=== PATIENT | female | born 1985 | race Caucasian/White ===

== ENCOUNTER 2023-09-13 00:13 | Inpatient (IN) | payer BC ==
[2023-09-13] MEDS ORDERED: hydrALAZINE 20 MG/ML VIAL ONE (00:52)
[2023-09-13] MEDS ORDERED: hydrALAZINE 20 MG/ML VIAL SLOW IVP PRN ×3 (00:56)
[2023-09-13] MEDS ORDERED: Lorazepam 2 MG/ML VIAL SLOW IVP PRN (00:56)
[2023-09-13] MEDS ORDERED: Labetalol HCl 100 MG/20 ML VIAL SLOW IVP PRN ×2 (00:56)
[2023-09-13] MEDS ORDERED: Acetaminophen 500 MG TAB PO PRN (00:56)
[2023-09-13] MEDS ORDERED: Carboprost 250 MCG/ML AMP IM PRN (00:56)
[2023-09-13] MEDS ORDERED: Calcium Gluc 4.6 MEQ/10 ML (100 MG/ML) SLOW IVP PRN (00:56)
[2023-09-13] MEDS ORDERED: Ondansetron PF 4 MG/2 ML Vial IVP PRN ×3 (00:56→10:39)
[2023-09-13] MEDS ORDERED: Tranexamic Acid 1,000 MG/10 ML VIAL IVP PRN (00:56)
[2023-09-13] MEDS ORDERED: Promethazine HCl 25 MG/ML VIAL IM PRN ×2 (00:56→10:39)
[2023-09-13] MEDS ORDERED: Misoprostol 200 MCG TAB PR PRN (00:56)
[2023-09-13] MEDS ORDERED: Diphenoxylate HCl/Atropine Tablet PO PRN ×2 (00:56)
[2023-09-13] MEDS ORDERED: Butorphanol Tartrate 1 MG/ML VIAL SLOW IVP PRN (00:56)
[2023-09-13] MEDS ORDERED: Oxytocin 30 units/NS 500 ML 500 ML IV SCH (01:00)
[2023-09-13 01:09] VITALS: BMI 44.4
[2023-09-13] MEDS ORDERED: Magnesium Sulfate 20 gm/500 ml 20 GM/500 ML BAG ONE (01:12)
[2023-09-13 01:27] LABS: Hematocrit 33.6 % (34.9-44.5); Hemoglobin 11.2 g/dL (12.0-15.5); Mean Corpuscular HGB CONC 33.3 g/dL (32.0-36.0); Mean Corpuscular Hemoglobin 27.3 pg (27.0-33.0); Mean Platelet Volume 12.6 fl (7.4-10.4); Platelet Count 285 10x3/uL (150-450); RBC Distribution Width 13.7 % (11.5-14.5); White Blood Cell (WBC) Count 13.3 10x3/uL (3.5-10.5)
[2023-09-13] MEDS: Magnesium Sulfate 20 gm/500 ml 20 GM/500 ML BAG IVPB SCH ×2 (01:29→09:36)
[2023-09-13] MEDS ORDERED: Penicillin G Potassium 5 MILL.UNITS in Sodium Chloride 0.9% 100 ML IVPB SCH (01:30)
[2023-09-13 01:45] LABS: ALT (SGPT) 38 U/L (8-55); AST (SGOT) 30 U/L (5-34); Albumin 3.5 g/dL (3.5-5.0); Alkaline Phosphatase 157 U/L (40-110); Anion Gap 17 mmol/L (10-20); BUN (Urea Nitrogen) 10 mg/dL (7.0-18.7); Bilirubin, Total 0.3 mg/dL (0.2-1.2); Calc. Creatinine Clearance 171 mL/min (70-130); Calcium 9.5 mg/dL (7.8-10.44); Carbon Dioxide 17 mmol/L (22-29); Chloride 105 mmol/L (98-107); Estimated GFR 87; Globulin 3.2 g/dL (2.4-3.5); Glucose 85 mg/dL (70-105); Potassium 4.3 mmol/L (3.5-5.1); Protein, Total 6.7 g/dL (6.0-8.3); Sodium 135 mmol/L (136-145)
[2023-09-13 02:04] LABS: HBSAg Index 0.16 S/CO (0-0.99); Hep B Surf Ag - L&D Non-Reactive S/CO (NonReactive)
[2023-09-13 02:06] LABS: Syphilis Antibody Nonreactive (Nonreactive); Syphilis Antibody Index 0.03 S/CO (<1.00 Non-Reactive)
[2023-09-13] MEDS: Lactated Ringer's 1,000 ML IV SCH ×3 (02:18→21:12)
[2023-09-13 03:10] LABS: Creatinine, Urine 46.16 mg/dL (47-110); Protein, Urine Random Quant Less than 10 mg/dL (1-14)
[2023-09-13] MEDS: Betamet Acet/Betamet Na Ph 30 MG/5 ML VIAL IM SCH (03:17)
[2023-09-13] MEDS: Penicillin G 2.5 MILL.units 2.5 MILL.UNITS in Premix 1 BAG IVPB SCH ×4 (07:59→21:13)
[2023-09-13] MEDS ORDERED: CEFAZOLIN 2 GM VIAL ONE (08:49)
[2023-09-13] MEDS ORDERED: Sodium Chloride 0.9% 100 ML ONE (08:52)
[2023-09-13] MEDS ORDERED: Bicitra 30 ML UDCUP PO PRN (09:43)
[2023-09-13] MEDS ORDERED: Famotidine/PF 20 mg/2ml Vial SLOW IVP PRN (09:43)
[2023-09-13] MEDS ORDERED: CEFAZOLIN 2 GM in Sodium Chloride 0.9% 100 ML IVPB SCH (09:45)
[2023-09-13] MEDS ORDERED: Naloxone HCl 0.4 mg/ml Vial IVP PRN ×2 (10:39)
[2023-09-13] MEDS ORDERED: Promethazine HCl 25 MG SUPP PR PRN (10:39)
[2023-09-13] MEDS ORDERED: Moisturizing Cream (Eucerin) 113 GM JAR TOP PRN (10:39)
[2023-09-13] MEDS ORDERED: Naloxone HCl 0.4 mg/ml Vial IV PRN (10:39)
[2023-09-13] MEDS ORDERED: Meperidine HCl/PF 25 MG/ML VIAL SLOW IVP PRN (10:39)
[2023-09-13] MEDS ORDERED: diphenhydrAMINE 50 MG/ML VIAL IVP PRN (10:39)
[2023-09-13] MEDS ORDERED: Communication Order-Pharmacy FS SCH (10:45)
[2023-09-13] MEDS ORDERED: Morphine PF 10 MG/10 ML VIAL ONE (10:56)
[2023-09-13] MEDS ORDERED: Phenylephrine 40 MG/NS 250 ML 250 ML ONE (11:00)
[2023-09-13] MEDS ORDERED: Oxytocin 10 UNITS/ML VIAL ONE (12:13)
[2023-09-13] MEDS ORDERED: Dexamethasone 4 mg/ml Vial ONE (12:19)
[2023-09-13] MEDS ORDERED: Ondansetron PF 4 MG/2 ML Vial ONE (12:19)
[2023-09-13 13:52] LABS: Uric Acid 4.7 mg/dL (2.6-6.0)
[2023-09-13] MEDS ORDERED: Dexmedetomidine 200 MCG/2 ML VIAL ONE (14:27)
[2023-09-13] MEDS ORDERED: Misoprostol 200 MCG TAB ONE (19:05)
[2023-09-13] MEDS ORDERED: fentaNYL 50 mcg/mL 1 mL Vial ONE (19:16)
[2023-09-13] MEDS: fentaNYL 50 mcg/mL 1 mL Vial SLOW IVP PRN ×2 (19:17→20:33)
[2023-09-13 19:25] LABS: #Monocytes 0.8 10x3/uL (0.0-1.1); #Neutrophils 17.1 10x3/uL (1.5-8.4); %Basophils 0.1 % (0.0-2.0); %Lymphocytes 11.5 % (18.0-47.0); %Monocytes 3.7 % (0.0-10.0); %Neutrophils 84.1 % (40.0-75.0); Hematocrit 28.8 % (34.9-44.5); Hemoglobin 9.3 g/dL (12.0-15.5); Mean Corpuscular HGB CONC 32.3 g/dL (32.0-36.0); Mean Corpuscular Hemoglobin 26.6 pg (27.0-33.0); Mean Corpuscular Volume 82.3 fl (81.6-98.3); Mean Platelet Volume 12.2 fl (7.4-10.4); Platelet Count 313 10x3/uL (150-450); White Blood Cell (WBC) Count 20.3 10x3/uL (3.5-10.5)
[2023-09-13 19:43] LABS: D-Dimer Test 9.68 mg/L FEU (0.19-0.50); INR-International Normal Ratio 0.9; Prothrombin Time 9.3 sec (9.5-12.1)
[2023-09-13 19:46] LABS: PTT 21.3 sec (22.0-33.0)
[2023-09-13] MEDS: Ketorolac Tromethamine 30 MG/ML VIAL IVP SCH (19:48)
[2023-09-13] MEDS ORDERED: fentaNYL 50 mcg/mL 1 mL Vial SLOW IVP SCH (20:00)
[2023-09-13 21:06] LABS: Magnesium 1.7 mg/dL (1.6-2.6)
[2023-09-14] MEDS: Magnesium Sulfate 20 gm/500 ml 20 GM/500 ML BAG IVPB SCH ×2 (04:32→14:02)
[2023-09-14] MEDS: Betamet Acet/Betamet Na Ph 30 MG/5 ML VIAL IM SCH (04:44)
[2023-09-14] MEDS: Ketorolac Tromethamine 30 MG/ML VIAL IVP SCH ×3 (04:44→20:56)
[2023-09-14] MEDS: Lactated Ringer's 1,000 ML IV SCH (04:44)
[2023-09-14] MEDS: Penicillin G 2.5 MILL.units 2.5 MILL.UNITS in Premix 1 BAG IVPB SCH (04:44)
[2023-09-14 07:09] LABS: Hematocrit 32.5 % (34.9-44.5); Hemoglobin 10.9 g/dL (12.0-15.5); Mean Corpuscular HGB CONC 33.5 g/dL (32.0-36.0); Mean Corpuscular Hemoglobin 27.9 pg (27.0-33.0); Mean Corpuscular Volume 83.3 fl (81.6-98.3); Mean Platelet Volume 12.1 fl (7.4-10.4); Platelet Count 305 10x3/uL (150-450); RBC Distribution Width 14.2 % (11.5-14.5); White Blood Cell (WBC) Count 22.1 10x3/uL (3.5-10.5)
[2023-09-14] MEDS ORDERED: Simethicone Chewable 80 MG TAB PO PRN (07:51)
[2023-09-14] MEDS ORDERED: Oxytocin 30 units/NS 500 ML 500 ML IV SCH (07:51)
[2023-09-14] MEDS ORDERED: Boostrix 0.5 ML (Tdap) VIAL (>/=7 yrs of age) IM ONE (07:51)
[2023-09-14] MEDS ORDERED: Acetaminophen 325 MG TAB PO PRN (07:51)
[2023-09-14] MEDS ORDERED: Lanolin Ointment 7 GM TUBE TOP PRN (07:51)
[2023-09-14] MEDS ORDERED: hydrALAZINE 20 MG/ML VIAL SLOW IVP PRN (07:51)
[2023-09-14] MEDS ORDERED: Zolpidem Tartrate 5 MG TAB PO PRN (07:51)
[2023-09-14] MEDS ORDERED: Misoprostol 200 MCG TAB PR PRN (07:51)
[2023-09-14] MEDS ORDERED: Bisacodyl 10 MG SUPP PR PRN (07:51)
[2023-09-14] MEDS ORDERED: HYDROcodone/Acetaminophen 5/325 mg Tablet PO PRN ×4 (07:51→19:50)
[2023-09-14] MEDS ORDERED: Prenatal Vitamin 1 TAB PO SCH (09:00)
[2023-09-14] MEDS ORDERED: Ferrous Sulfate 325 MG TAB PO SCH (09:00)
[2023-09-14] MEDS ORDERED: Docusate 100 MG CAP PO SCH (09:00)
[2023-09-14] MEDS ORDERED: Labetalol HCl 100 MG TAB PO SCH (09:00)
[2023-09-14] MEDS ORDERED: Magnesium Sulfate 20 gm/500 ml 20 GM/500 ML BAG ONE (14:00)
[2023-09-14] MEDS ORDERED: Ibuprofen 800 MG TAB PO SCH (19:00)
[2023-09-14] MEDS: Ibuprofen 800 MG TAB PO SCH (21:02)
[2023-09-14] MEDS: Labetalol HCl 100 MG TAB PO SCH (21:02)
[2023-09-15] MEDS: Ibuprofen 800 MG TAB PO SCH ×3 (05:20→20:36)
[2023-09-15] MEDS: Labetalol HCl 100 MG TAB PO SCH (08:25)
[2023-09-15] MEDS: Labetalol HCl 200 MG TAB PO SCH ×2 (08:37→20:35)
[2023-09-15] MEDS ORDERED: Simethicone Chewable 80 MG TAB PO PRN (17:32)
[2023-09-15] MEDS: Ferrous Sulfate 325 MG TAB PO SCH (18:56)
[2023-09-15] MEDS: Docusate 100 MG CAP PO SCH (20:35)
[2023-09-16] MEDS: Ibuprofen 800 MG TAB PO SCH ×3 (03:58→20:34)
[2023-09-16 05:53] LABS: #Basophils 0.1 10x3/uL (0.0-0.2); #Eosinphils 0.2 10x3/uL (0.0-0.5); #Monocytes 1.3 10x3/uL (0.0-1.1); #Neutrophils 12.1 10x3/uL (1.5-8.4); %Basophils 0.4 % (0.0-2.0); %Eosinophils 0.8 % (0.0-6.0); %Lymphocytes 23.6 % (18.0-47.0); %Monocytes 7.2 % (0.0-10.0); %Neutrophils 67.3 % (40.0-75.0); Hematocrit 24.2 % (34.9-44.5); Mean Corpuscular HGB CONC 33.1 g/dL (32.0-36.0); Mean Corpuscular Hemoglobin 28.2 pg (27.0-33.0); Mean Corpuscular Volume 85.2 fl (81.6-98.3); Mean Platelet Volume 10.7 fl (7.4-10.4); Platelet Count 267 10x3/uL (150-450); RBC Distribution Width 14.6 % (11.5-14.5); Red Blood Cell (RBC) Count 2.84 10x6/uL (3.90-5.03)
[2023-09-16] MEDS: Ferrous Sulfate 325 MG TAB PO SCH (07:14)
[2023-09-16] MEDS: Docusate 100 MG CAP PO SCH ×2 (08:15→20:34)
[2023-09-16] MEDS: Prenatal Vitamin 1 TAB PO SCH (08:15)
[2023-09-16] MEDS: Labetalol HCl 100 MG/20 ML VIAL SLOW IVP PRN ×2 (08:45→16:27)
[2023-09-16 12:24] LABS: Hematocrit 25.4 % (34.9-44.5); Hemoglobin 8.3 g/dL (12.0-15.5); Mean Corpuscular HGB CONC 32.7 g/dL (32.0-36.0); Mean Corpuscular Hemoglobin 27.8 pg (27.0-33.0); Mean Corpuscular Volume 84.9 fl (81.6-98.3); Mean Platelet Volume 10.8 fl (7.4-10.4); Platelet Count 306 10x3/uL (150-450); RBC Distribution Width 14.6 % (11.5-14.5); Red Blood Cell (RBC) Count 2.99 10x6/uL (3.90-5.03); White Blood Cell (WBC) Count 17.2 10x3/uL (3.5-10.5)
[2023-09-16] MEDS ORDERED: Iopamidol 300 61% 100 ML VIAL FS ONE (12:36)
[2023-09-16] MEDS: Labetalol HCl 200 MG TAB PO SCH (20:34)
[2023-09-17] MEDS: Ibuprofen 800 MG TAB PO SCH ×3 (04:00→20:58)
[2023-09-17] MEDS: Labetalol HCl 200 MG TAB PO SCH ×3 (08:40→20:58)
[2023-09-17] MEDS: Docusate 100 MG CAP PO SCH ×2 (08:41→20:58)
[2023-09-17] MEDS: Prenatal Vitamin 1 TAB PO SCH (08:41)
[2023-09-17] MEDS: Ferrous Sulfate 325 MG TAB PO SCH ×2 (09:14→18:28)
[2023-09-17] MEDS ORDERED: Furosemide 20 MG TAB PO SCH (16:00)
[2023-09-18] MEDS: Ibuprofen 800 MG TAB PO SCH ×2 (05:02→13:06)
[2023-09-18] MEDS: hydrALAZINE 20 MG/ML VIAL SLOW IVP PRN ×2 (05:07→06:21)
[2023-09-18] MEDS: Prenatal Vitamin 1 TAB PO SCH (08:01)
[2023-09-18] MEDS: Docusate 100 MG CAP PO SCH (08:01)
[2023-09-18] MEDS: Ferrous Sulfate 325 MG TAB PO SCH (08:01)
[2023-09-18] MEDS ORDERED: Labetalol HCl 200 MG TAB PO SCH (09:00)
[2023-09-18] MEDS ORDERED: Furosemide 20 MG TAB PO SCH (09:00)
[2023-09-18 12:51] VITALS: BP 159/77; TEMP 98.1
== END 2023-09-18 14:30 | disposition home or self-care (01) | DRG 787 ==
LOC: CSHLD/OP 00:13 → CSHLD 00:56 → CSHPP 09-14 18:38
PROVIDERS: ADMIT Obstetrics & Gynecology; ATTEND Obstetrics & Gynecology
PROC: 10D00Z1 Extraction of Products of Conception, Low, Open Approach (ICD-10-PCS; principal; 2023-09-13)
PROC: 30233N1 Transfusion of Nonautologous Red Blood Cells into Peripheral Vein, Percutaneous Approach (ICD-10-PCS; 2023-09-13)
DX: O10.92 Unspecified pre-existing hypertension complicating childbirth (principal); O72.1 Other immediate postpartum hemorrhage; M06.9 Rheumatoid arthritis, unspecified; O99.892 Other specified diseases and conditions complicating childbirth; O30.043 Twin pregnancy, dichorionic/diamniotic, third trimester; O32.1XX2 Maternal care for breech presentation, fetus 2; O14.14 Severe pre-eclampsia complicating childbirth; E66.9 Obesity, unspecified; O99.214 Obesity complicating childbirth; Z3A.34 34 weeks gestation of pregnancy; Z37.2 Twins, both liveborn; Z79.899 Other long term (current) drug therapy; Z88.8 Allergy status to other drugs, medicaments and biological substances
CPT/HCPCS: 36415; 36430; 51702; 74177; 76815; 80053; 82570; 83735; 84156; 84550; 85025; 85027; 85049; 85300; 85362; 85379; 85384; 85610; 85730; 86780; 86850; 86900; 86901; 87340; 88307; 99285; J0360; J0702; J1100; J2274; J2405; J2590; J3010; J3475; J3490; P9016; Q9967

== ENCOUNTER 2024-08-14 09:07 | Outpatient (CLI) | payer BC | END 2024-08-14 09:08 | disposition home or self-care (01) | LOC: CSHMAMMO 09:07 | PROVIDERS: ATTEND Obstetrics & Gynecology | DX: Z12.31 Encounter for screening mammogram for malignant neoplasm of breast (principal); Z80.3 Family history of malignant neoplasm of breast; Z91.89 Other specified personal risk factors, not elsewhere classified | CPT/HCPCS: 77063; 77067 ==